=== PATIENT | female | born 2000 | race Asian ===

== ENCOUNTER 2025-03-14 14:58 | Emergency (ER) | payer OTHER, SELFPAY ==
--- NOTE | ~2025-03-14 | XR_ITS ---
EXAMINATION: XR chest 2V, 03/14/2025 16:09 CDT HISTORY: ruq pain, pain with inspriation x 4 days, no inj, no surg COMPARISON: No comparisons available. Technique: 2 views obtained. Findings: The lungs are clear, no effusion. No pneumothorax. Heart is normal size. Mediastinal and hilar contours are within normal limits. Bony thorax no acute abnormality. Impression: No acute cardiopulmonary abnormality. Reviewed, dictated and finalized at location P. Impression: No acute cardiopulmonary abnormality.
[2025-03-14 15:18] VITALS: BP 116/80; PULSE 85; RESP 18; TEMP 37.2; O2SAT 98
--- NOTE | 2025-03-14 16:05 | ED.ABDPAIN ---
HPI - Abdominal Pain General Chief Complaint: Abdominal Pain Stated Complaint: UPPER R ABD PAIN Time Seen by Provider: 03/14/25 15:50 Source: patient, family and RN notes reviewed Mode of arrival: ambulatory Limitations: no limitations History of Present Illness HPI narrative: 25-year-old female presents Express Care complaining of right upper abdominal pain for approximately 5 days. Patient said her symptoms started after she took metronidazole for bacterial vaginosis, day 5 she developed abdominal pain, nausea, vomiting. Patient was seen at to [facility] ER for her symptoms, she had a lower pelvic ultrasound,, CT abdomen pelvis with contrast, lab work and was told everything was unremarkable and was diagnosed with gastritis along with ovarian cyst. Patient was sent home on Zofran and omeprazole. Patient says symptoms are not improving. Patient reports that sharp stabbing sensation to her right upper quadrant, that is worse with eating. Patient denies any nausea vomiting, diarrhea, fevers and body aches, chills, chest pain, difficulty breathing, or any other symptoms. Patient reports some pain with inspiration the right upper quadrant. Related Data Allergies Allergy/AdvReac Type Severity Reaction Status Date / Time No Known Allergies Allergy Verified 03/14/25 15:39 Review of Systems Review of Systems: CONSTITUTIONAL: Denies fever, chills, or sweats. EYES: Denies visual changes, redness, or discharge. ENT: Denies rhinorrhea, congestion, sore throat, or otalgia. CARDIOVASCULAR: Denies chest pain, palpitations, or edema. RESPIRATORY: Denies cough or dyspnea. GASTROINTESTINAL: Positive for abdominal pain. Negative for nausea, vomiting, or diarrhea. GENITOURINARY: Denies dysuria or hematuria. SKIN: Denies rash or itching. MUSCULOSKELETAL: Denies back pain, joint pain, or myalgia. NEUROLOGIC: Denies headache, numbness, or weakness. PSYCHIATRIC: Denies anxiety or depression. All other systems reviewed are negative, except as documented in HPI. PMFSH Comments At the time of my signature, I reviewed and agree with the nursing past medical, surgical, social, and family history. There is no relevant family history pertinent to the patient complaint. Exam Narrative: GENERAL: This is a well-nourished, well-developed adult, in no apparent distress. They are non ill-appearing, nontoxic appearing. Patient is anxious, condoms reassurance. HEAD: normocephalic, atraumatic. EYES: Sclera clear/white. Conjunctiva normal. Vision is grossly intact. Extraocular movements intact EARS: External ears normal, Hearing grossly intact. NOSE: External nose normal THROAT: Mucous membranes moist, NECK: Neck supple, non-tender without lymphadenopathy, masses or thyromegaly. CARDIOVASCULAR: Regular rate and rhythm without murmurs, gallops, or rubs. RESPIRATORY: Clear to auscultation. Breath sounds equal bilaterally. No wheezes, rales, or rhonchi. GASTROINTESTINAL: Abdomen soft, non-tender, nondistended. Bowel sounds are active. No hepato-splenomegaly, or palpable masses. No guarding or rigidity. Rebound tenderness. Negative Henderson sign. SKIN: warm, Dry, intact with no suspicious lesions or rash, good texture and turgor. NEURO: awake, alert, and oriented to person, place and time. There were no obvious focal neurologic abnormalities. EXTREMITIES: No joint tenderness, effusion, or edema noted. BACK: Nontender without deformity. No CVA tenderness. Course Course Emergency Course: Portions of this record may have been created with voice recognition software Level of Care: Express Care Visit Vital Signs Vital signs: Vital Signs Temperature 98.9 F 03/14/25 15:18 Pulse Rate 85 03/14/25 15:18 Respiratory Rate 18 03/14/25 15:18 Blood Pressure 116/80 03/14/25 15:18 Pulse Oximetry 98 03/14/25 15:18 Temperature 98.9 F 03/14/25 15:18 Pulse Rate 85 03/14/25 15:18 Respiratory Rate 18 03/14/25 15:18 Blood Pressure 116/80 03/14/25 15:18 Pulse Oximetry 98 03/14/25 15:18 Reviewed MDM - Abdominal Pain MDM Narrative Medical decision making narrative: Negative Henderson sign, no peritoneal findings, no abdominal tenderness, unremarkable workup done in the ER yesterday. Chest x-ray performed from patient's request as she was worried about a diaphragm, does not appear to be diaphragm related. Chest x-ray negative for any acute cardiopulmonary findings, Patient did not have an ultrasound performed of her right upper quadrant to assess the gallbladder, gallstones could have been missed. Symptoms are worse with eating, she recently was on Flagyl, and appears likely any more of a gastritis as she was diagnosed with. Offered patient ER transfer her back to the ER to get an ultrasound of her gallbladder and further further evaluation and she declined. Advised patient continue taking medications as prescribed and to have a close follow-up with PCP and GI specialist that she see in the past before. Discussed physical exam findings. Advised supportive measures and signs/symptoms to go to the ER. Pt is appropriate for outpt treatment and f/u. Differential Diagnosis Differential diagnosis: Likely other (Cholecystitis, cholestasis, gastritis, gastric ulcer, duodenal ulcer) Imaging Data Radiologist's impression: ITS Impressions Chest X-Ray 03/14/25 16:26 Impression: No acute cardiopulmonary abnormality. Critical Care Time Critical Care Time Critical Care Time: No Discharge Plan Discharge Clinical Impression: Right upper quadrant abdominal pain Gastritis Qualifiers: Gastritis type: unspecified gastritis Chronicity: acute Gastritis bleeding: without bleeding Qualified Code(s): K29.00 - Acute gastritis without bleeding Patient Disposition: Home Condition: Stable Instructions: Antibiotic Form, Gastritis (ED) Additional Instructions: Chest x-ray is negative for any acute cardiopulmonary findings. Please continue take your omeprazole as directed. Follow-up with her GI specialist in 3-5 days. You may need ultrasound of your gallbladder symptoms persist. Avoid foods that may trigger symptoms such as mint food, tomato based foods, spicy foods, fried foods, alcohol, NSAIDs, etc. You may take up to 1000 mg Tylenol every 6-8 hours. Do not exceed 1000 mg per dose, do exceed more than 4000 mg of Tylenol in a day. You may also take Tums as needed for heartburn, follow instructions on the bottle. If you developed worsening abdominal pain, bloody stools, fevers, unable to keep any food or water down more, or any serious concerns please go to the ER immediately. Patient Language: Yi Follow-up/Referrals: PHYSICIAN,TOP INVENTORY CONTROL EXECUTIVE [Primary Care Provider, Internal Medicine] Stand Alone Forms: Work/School Release IP Time of Disposition: 16:46
== END 2025-03-14 16:58 | disposition home or self-care (01) ==
DX: K29.00 Acute gastritis without bleeding (principal)
CPT/HCPCS: 71046; 99213; G0463

== ENCOUNTER 2025-04-03 14:15 | Emergency (ER) | payer OTHER, SELFPAY ==
[2025-04-03] VITALS (10 sets, daily range): BP systolic 108–121; BP diastolic 76–92; PULSE 98–110; RESP 16–26; TEMP 37.7; O2SAT 97–100
--- NOTE | ~2025-04-03 | CT_ITS ---
EXAMINATION: CTA chest PE abdomen pel, 04/03/2025 17:10 CDT HISTORY: shortness breath, chest pain, elevated d. dimer COMPARISON: No comparisons available. TECHNIQUE: CTA scan with 3D Reconstructions of the chest, CT of the abdomen and pelvis was performed with contrast Isovue 300, 92cc injected IV. One or more of the following dose reduction techniques were used: automated exposure control, adjustment of the mA and/or kV according to patient size, use of iterative reconstruction technique. Unless otherwise stated, incidental findings do not require dedicated follow up imaging FINDINGS: CT chest: No significant coronary calcification is present ([id number]) LUNGS: Clear without consolidation, effusion, or pneumothorax. HEART AND PERICARDIUM: Within normal limits. AORTA: Normal caliber aorta. MEDIASTINUM: Unremarkable. THYROID: The thyroid is unremarkable. CT abdomen: LIVER: Unremarkable, liver contours intact, no lesions. SPLEEN: Unremarkable, no splenomegaly. KIDNEYS: Right Kidney: Unremarkable. No calculi. No hydronephrosis. Left Kidney: Unremarkable. No calculi. No hydronephrosis ADRENAL GLANDS: Unremarkable. PANCREAS: GALLBLADDER/BILIARY: Unremarkable. No biliary dilatation. STOMACH AND ESOPHAGUS: Visualized stomach and esophagus within normal limits. BOWEL/MESENTERY: Moderate fecal content, no colitis or diverticulitis. Appendix normal. Mesentery normal. No thickening or dilated loops of small bowel. RETROPERITONEUM: Unremarkable AORTA/VASCULATURE: Normal caliber aorta. FREE FLUID OR FREE AIR: None. CT pelvis: SOLID ORGANS/REPRODUCTIVE: Unremarkable. BLADDER: Within normal limits. LYMPHADENOPATHY: No lymphadenopathy. OSSEOUS STRUCTURES: No acute osseous abnormality.No suspicious lesions. OVERLYING SOFT TISSUES: Unremarkable. IMPRESSION: 1. Negative for pulmonary embolism. No acute process in the chest.. No acute process in the abdomen or pelvis Reviewed, dictated and finalized at location P. IMPRESSION: 1. Negative for pulmonary embolism. No acute process in the chest.. No acute pr ocess in the abdomen or pelvis
--- NOTE | ~2025-04-03 | XR_ITS ---
EXAMINATION: XR chest 2V, 04/03/2025 15:50 CDT HISTORY: dyspnea WITH RIGHT SIDED CHEST PAIN THAT RADIATES COMPARISON: No comparisons available. Technique: 2 views obtained. Findings: The lungs are clear, no effusion. No pneumothorax. Heart is normal size. Mediastinal and hilar contours are within normal limits. Bony thorax no acute abnormality. Impression: No acute cardiopulmonary abnormality. Reviewed, dictated and finalized at location P. Impression: No acute cardiopulmonary abnormality.
--- NOTE | ~2025-04-03 | US_ITS ---
ULTRASOUND ABDOMEN LIMITED (RIGHT UPPER QUADRANT) Clinical History: R upper abdominal pain Comparison: CT chest abdomen pelvis hours prior Technique: Right upper quadrant sonography Findings: Liver: Normal size. Normal echotexture. No intrahepatic biliary ductal dilatation. Normal hepatopedal flow main portal vein Common Duct: Normal caliber. 2 mm. Gallbladder: No stones. No wall thickening. No pericholecystic fluid. Pancreas: Unremarkable. IMPRESSION: 1. No acute findings. Reviewed, dictated and finalized at location R. IMPRESSION: 1. No acute findings.
--- NOTE | 2025-04-03 15:27 | ED.SOB ---
HPI - SOB/Dyspnea General Chief Complaint: Shortness of Breath/Dyspnea <SUELLEN Montoya - Last Filed: 04/03/25 15:36> Stated Complaint: RUQ x 3 weeks. SOB. bright red blood in stool <SUELLEN Montoya - Last Filed: 04/03/25 15:36> Time Seen by Provider: 04/03/25 15:27 <SUELLEN Montoya - Last Filed: 04/03/25 15:36> Focused HPI: 03/13/25 Pt started having pain in RUQ and right side of chest. She was seen at [facility] on that day and had CT Scan there showed nothing acute. Discharged with PPI therapy and suspected Gastritis. She was advised to see GI, but appointment is in 2 months at [facility]. She felt better the first week, but then she developed SOB with pain on inspiration. She has pain with BM and blood in the stool two days ago that was light pink in color. No clots, but was covering the stool. No vomiting. Did start coughing for the past two days without any hemoptysis. Does not take any blood thinners. LMP two weeks ago. No chance of . Feels chilled at times, no measured temperatures and feels dizzy. GENERAL: Thin, ill appearing female. HEAD: Normocephalic, atraumatic. CHEST: Clear to auscultation. ?No respiratory distress. No palpable tenderness of the chest. HEART: Regular rhythm, tachycardic. ABDOMINAL: TTP diffuse. NO peritoneal signs. NEURO: ?Alert and oriented x3. Patient screened in triage and initial orders placed.? ?Additional care and disposition to be based upon?diagnostic testing and treatment. <SUELLEN Montoya - Last Filed: 04/03/25 15:36> Source: patient <SUELLEN Montoya - Last Filed: 04/03/25 15:36> Mode of arrival: ambulatory <SUELLEN Montoya - Last Filed: 04/03/25 15:36> Limitations: no limitations <SUELLEN Montoya - Last Filed: 04/03/25 15:36> History of Present Illness HPI Narrative: I agree with the above HPI <Isabella Maza, SERVER MANAGER - Last Filed: 04/03/25 23:21> Related Data Allergies/Adverse Reactions: Allergies Allergy/AdvReac Type Severity Reaction Status Date / Time No Known Allergies Allergy Verified 03/14/25 15:39 <Samra Xavier, BATCH MIXER OPERATOR-C - Last Filed: 04/03/25 15:36> Review of Systems Review of Systems: All systems reviewed & are unremarkable except as noted in HPI and below <Isabella Maza APRN - Last Filed: 04/03/25 23:21> Exam Narrative: GENERAL: Ill appearing, well-nourished, non-toxic, in no acute distress. HEAD: Normocephalic, atraumatic. NECK: Supple. No adenopathy, no masses. RESPIRATORY: Airway patent, respirations nonlabored. Clear to auscultation bilaterally, no rales, rhonchi, wheezing. CARDIOVASCULAR: tachycardia, regular rhythm without murmurs, rubs, or gallops. Peripheral pulses 2+ and equal bilaterally. ABDOMINAL: Soft, generalized tender, nondistended, no hepatosplenomegaly. Normoactive BS. MUSCULOSKELETAL: Moves all extremities. Strength/ROM intact without gross deformities. SKIN: Warm, dry, normal color. No rashes. NEURO: A&O X3. Speech clear. Cranial nerves II-XII intact. No ataxic movements. PSYCHIATRIC: Appropriate mood and affect. Normal interaction. GI/: Pt's rectal exam indicates no palpable hemorrhoids and no rectal bleeding. <Isabella Maza, CHAKA - Last Filed: 04/03/25 23:21> Course Vital Signs Vital signs: Vital Signs Temperature 37.7 C H 04/03/25 15:15 Pulse Rate 110 H 04/03/25 15:15 Respiratory Rate 26 H 04/03/25 15:15 Blood Pressure 108/76 04/03/25 15:15 Pulse Oximetry 100 04/03/25 15:15 Oxygen Delivery Room Air 04/03/25 15:15 Temperature 37.7 C H 04/03/25 15:15 Pulse Rate 98 04/03/25 17:37 Respiratory Rate 20 04/03/25 17:37 Blood Pressure 120/87 04/03/25 17:46 Pulse Oximetry 100 04/03/25 17:46 Oxygen Delivery Room Air 04/03/25 16:39 <Samra Xavier, BATCH MIXER OPERATOR-C - Last Filed: 04/03/25 15:36> Vital Signs Temperature 37.7 C H 04/03/25 15:15 Pulse Rate 110 H 04/03/25 15:15 Respiratory Rate 26 H 04/03/25 15:15 Blood Pressure 108/76 04/03/25 15:15 Pulse Oximetry 100 04/03/25 15:15 Oxygen Delivery Room Air 04/03/25 15:15 Temperature 37.7 C H 04/03/25 15:15 Pulse Rate 98 04/03/25 17:37 Respiratory Rate 20 04/03/25 17:37 Blood Pressure 120/87 04/03/25 17:46 Pulse Oximetry 100 04/03/25 17:46 Oxygen Delivery Room Air 04/03/25 16:39 <Isabella Maza, SERVER MANAGER - Last Filed: 04/03/25 23:21> MDM - SOB/Dyspnea MDM Narrative Medical decision making narrative: Pt started having pain in RUQ and right side of chest. She was seen at [facility] on that day and had CT Scan there showed nothing acute. Discharged with PPI therapy and suspected Gastritis. She was advised to see GI, but appointment is in 2 months at [facility]. She felt better the first week, but then she developed SOB with pain on inspiration. She has pain with BM and blood in the stool two days ago that was light pink in color. No clots, but was covering the stool. No vomiting. Did start coughing for the past two days without any hemoptysis. Does not take any blood thinners. LMP two weeks ago. No chance of . Feels chilled at times, no measured temperatures and feels dizzy. Labs Ordered: CBC, CMP, UA, lipase, D-dimer, COVID/flu/RSV, lactic acid Imaging Ordered: CT PE abdomen pelvis Medications Ordered: 1 L normal saline IV bolus, morphine 2 mg IV, Zofran 4 mg IV Results: Patient's CT scan indicates no acute abnormalities. Her ultrasound also indicates no acute abnormalities. Patient's urinalysis indicates she has a UTI. Diagnosis: Urinary tract infection, GERD, atypical chest pain Risks: HEART score: low risk HEART Score for Major Cardiac Events from [email or web address] on 04/03/2025 All calculations should be rechecked by clinician prior to use RESULT SUMMARY: 0 points Low Score (0-3 points) Risk of MACE of 0.9-1.7%. INPUTS: History ?> 0 = Slightly suspicious EKG ?> 0 = Normal Age ?> 0 = <45 Risk factors ?> 0 = No known risk factors Initial troponin ?> 0 = <Normal limit Consults: gastroenterology (outpatient) 1999-Patient endorses improvement of symptoms following medication administration but is tearful upon time of it reexamination. She is begging to be admitted for pain control as she says the pain is terrible at night and wakes her up every hour. Patient is begging for a diagnosis for her symptoms. She reports I will have any kind of surgery I do not care. I just want this pain to be relieved patient was offered an ultrasound of her right upper quadrant but declined. It was advised patient receive Pepcid in addition to her pantoprazole at home, as her midsternal chest pain is most likely related to GERD. 2100- Pt is requesting an ultrasound now. 2300-Patient's abdominal ultrasound indicates no acute abnormalities. Patient Education/Shared MDM: Results of lab work and imaging shared with patient. Extensive discussion between DIGITAL MEDIA MANAGER, pt and her regarding her reassuring work-up and things she will be sent home with to her relieve her symptoms until she is able to follow-up with GI. She endorses mild improvement of symptoms following medication administration. Patient strongly advised to maintain hydration status upon discharge and follow-up with GI as soon as possible. She will be discharged home with a prescription for Pepcid, Bentyl, GI cocktail, and Bactrim. Strict return precautions provided. Patient verbalized understanding and is in agreement with plan. Vital signs stable at time of discharge. All questions answered. <Isabella Maza APRN - Last Filed: 04/03/25 23:21> Differential Diagnosis Differential diagnosis: Likely other (GERD, muscle strain, STEMI, pulmonary embolism, urinary tract infection) <Isabella Maza APRN - Last Filed: 04/03/25 23:21> Lab Data Attestation: I reviewed the patient's lab results. <Isabella Maza APRN - Last Filed: 04/03/25 23:21> Result diagrams: 04/03/25 16:17 04/03/25 16:17 <Samra Xavier APN-Shantel - Last Filed: 04/03/25 15:36> Labs: Lab Results 04/03/25 04/03/25 04/03/25 Range/Units 16:17 16:18 17:42 WBC 7.9 (4.5-10.0) K/mm3 RBC 4.66 (4.2-5.4) M/mm3 Hgb 13.9 (12.0-15.0) g/dL Hct 41.5 (37.0-47.0) % MCV 89.1 (80-100) fl MCH 29.8 (26-34) pg MCHC 33.5 (32-36) g/dl RDW 12.0 (11.5-14.5) % Plt Count 249 (150-375) k/mm3 MPV 10.0 (7.4-10.4) fl Immature Gran % (Auto) 0.3 (0-0.5) % Neut % (Auto) 61.1 (45.5-73.1) % Lymph % (Auto) 28.7 (18.3-44.2) % [place] % (Auto) 9.2 H (2.6-8.5) % Eos % (Auto) 0.1 (0-4.4) % Baso % (Auto) 0.6 (0.2-1.2) % Lymph # (Auto) 2.27 (0.9-3.2) K/mm3 [place] # (Auto) 0.7 H (0.1-0.6) K/mm3 Eos # (Auto) 0.0 (0-0.3) K/mm3 Baso # (Auto) 0.1 (0.0-0.1) K/mm3 Abs Immat Gran (auto) 0.02 (0.00-0.031) K/mm3 Absolute Neuts (auto) 4.8 (1.3-6.7) K/mm3 Absolute Nucleated RBC 0.000 (0.0-0.012) K/mm3 Nucleated RBC % 0.0 (0.0-0.2) % D-Dimer 1.35 H (<0.48) ug/mL Sodium 139 (137-145) mmol/L Potassium 4.0 (3.4-5.0) mmol/L Chloride 103 (98-107) mmol/L Carbon Dioxide 26 (22-30) mmol/L Anion Gap 10 (4-12) mmol/L BUN 12 (7-17) mg/dL Creatinine 0.86 (0.7-1.0) mg/dL Estim Creat Clear Calc 68 ml/min Estimated GFR > 60 (59 - ) Glucose 104 (65-110) mg/dL Lactic Acid 0.9 (0.7-2.0) mmol/L Calcium 9.7 (8.4-10.2) mg/dL Total Bilirubin 0.9 (0.2-1.3) mg/dL AST 23 (14-36) U/L ALT 16 (6-35) U/L Alkaline Phosphatase 56 (38-126) U/L Total Protein 8.5 H (6.3-8.2) g/dL Albumin 5.3 H (3.5-5.1) g/dL Lipase 228 (23-300) U/L Urine Color Yellow (Yellow) Urine Appearance Cloudy H (Clear) Urine pH 6.5 (5.0-9.0) Ur Specific [place] 1.024 (1.001-1.035) Urine Protein Negative (Negative) mg/dL Urine Glucose (UA) Negative (Negative) mg/dL Urine Ketones 1+ H (Negative) mg/dL Ur Blood (Man) Trace (Negative) Urine Nitrate Negative (Negative) Urine Bilirubin Negative (Negative) Urine Urobilinogen 1.0 (<2.0) mg/dL Leukocyte Esterase Rfl 2+ H (Negative) BLANE/UL Urine RBC 3-5 H (0-2) /hpf Urine WBC 6-10 H (0-3) /hpf Ur Squamous Epith Cells Occasional (Few) /hpf Urine Bacteria None seen /hpf Urine Casts 0-2 POC Urine HCG, Qual Negative (Negative) Influenza A (RT-PCR) Negative (Negative) Influenza B (RT-PCR) Negative (Negative) RSV (RT-PCR) Negative (Negative) SARS-CoV-2 RNA (RT-PCR) Negative (Negative) <Samra Xavier APN-C - Last Filed: 04/03/25 15:36> Lab Results 04/03/25 04/03/25 04/03/25 Range/Units 16:17 16:18 17:42 WBC 7.9 (4.5-10.0) K/mm3 RBC 4.66 (4.2-5.4) M/mm3 Hgb 13.9 (12.0-15.0) g/dL Hct 41.5 (37.0-47.0) % MCV 89.1 (80-100) fl MCH 29.8 (26-34) pg MCHC 33.5 (32-36) g/dl RDW 12.0 (11.5-14.5) % Plt Count 249 (150-375) k/mm3 MPV 10.0 (7.4-10.4) fl Immature Gran % (Auto) 0.3 (0-0.5) % Neut % (Auto) 61.1 (45.5-73.1) % Lymph % (Auto) 28.7 (18.3-44.2) % [place] % (Auto) 9.2 H (2.6-8.5) % Eos % (Auto) 0.1 (0-4.4) % Baso % (Auto) 0.6 (0.2-1.2) % Lymph # (Auto) 2.27 (0.9-3.2) K/mm3 [place] # (Auto) 0.7 H (0.1-0.6) K/mm3 Eos # (Auto) 0.0 (0-0.3) K/mm3 Baso # (Auto) 0.1 (0.0-0.1) K/mm3 Abs Immat Gran (auto) 0.02 (0.00-0.031) K/mm3 Absolute Neuts (auto) 4.8 (1.3-6.7) K/mm3 Absolute Nucleated RBC 0.000 (0.0-0.012) K/mm3 Nucleated RBC % 0.0 (0.0-0.2) % D-Dimer 1.35 H (<0.48) ug/mL Sodium 139 (137-145) mmol/L Potassium 4.0 (3.4-5.0) mmol/L Chloride 103 (98-107) mmol/L Carbon Dioxide 26 (22-30) mmol/L Anion Gap 10 (4-12) mmol/L BUN 12 (7-17) mg/dL Creatinine 0.86 (0.7-1.0) mg/dL Estim Creat Clear Calc 68 ml/min Estimated GFR > 60 (59 - ) Glucose 104 (65-110) mg/dL Lactic Acid 0.9 (0.7-2.0) mmol/L Calcium 9.7 (8.4-10.2) mg/dL Total Bilirubin 0.9 (0.2-1.3) mg/dL AST 23 (14-36) U/L ALT 16 (6-35) U/L Alkaline Phosphatase 56 (38-126) U/L Total Protein 8.5 H (6.3-8.2) g/dL Albumin 5.3 H (3.5-5.1) g/dL Lipase 228 (23-300) U/L Urine Color Yellow (Yellow) Urine Appearance Cloudy H (Clear) Urine pH 6.5 (5.0-9.0) Ur Specific [place] 1.024 (1.001-1.035) Urine Protein Negative (Negative) mg/dL Urine Glucose (UA) Negative (Negative) mg/dL Urine Ketones 1+ H (Negative) mg/dL Ur Blood (Man) Trace (Negative) Urine Nitrate Negative (Negative) Urine Bilirubin Negative (Negative) Urine Urobilinogen 1.0 (<2.0) mg/dL Leukocyte Esterase Rfl 2+ H (Negative) BLANE/UL Urine RBC 3-5 H (0-2) /hpf Urine WBC 6-10 H (0-3) /hpf Ur Squamous Epith Cells Occasional (Few) /hpf Urine Bacteria None seen /hpf Urine Casts 0-2 POC Urine HCG, Qual Negative (Negative) Influenza A (RT-PCR) Negative (Negative) Influenza B (RT-PCR) Negative (Negative) RSV (RT-PCR) Negative (Negative) SARS-CoV-2 RNA (RT-PCR) Negative (Negative) <Isabella Maza APRN - Last Filed: 04/03/25 23:21> Imaging Data Attestation: I personally reviewed and interpreted this imaging study as follows: <Isabella Maza APRN - Last Filed: 04/03/25 23:21> Radiologist's impression: Impressions Chest X-Ray 04/03/25 16:06 Impression: No acute cardiopulmonary abnormality. Chest/Abdomen/Pelvis CTA 04/03/25 17:41 IMPRESSION: 1. Negative for pulmonary embolism. No acute process in the chest.. No acute process in the abdomen or pelvis <Isabella Maza APRN - Last Filed: 04/03/25 23:21> Discharge Plan Discharge Clinical Impression: Urinary tract infection, Gastric reflux syndrome, Atypical chest pain <SUELLEN Montoya - Last Filed: 04/03/25 15:36> Patient Disposition: Home <SUELLEN Montoya - Last Filed: 04/03/25 15:36> Condition: Stable <SUELLEN Montoya Last Filed: 04/03/25 15:36> Instructions: Antibiotic Form, Urinary Tract Infection in Women (ED), Diet for Stomach Ulcers and Gastritis (ED) <SUELLEN Montoya - Last Filed: 04/03/25 15:36> Additional Instructions: Please return to the ER with any worsening symptoms. Follow-up with GI as soon as possible. Take all medications as prescribed, including regularly scheduled medications. You may take Bentyl as needed for pain control. Please take Pepcid twice a day along with your pantoprazole. Complete your full dose of antibiotics. <SUELLEN Montoya - Last Filed: 04/03/25 15:36> Patient Language: Irish <SUELLEN Montoya - Last Filed: 04/03/25 15:36> Prescriptions: New famotidine [Pepcid] 40 mg tablet 40 mg PO BID Qty: 60 0RF sulfamethoxazole-trimethoprim [Bactrim DS] 800-160 mg tablet 1 tablet PO Q12H 5 Days Qty: 10 0RF dicyclomine 10 mg capsule 10 mg PO TID Qty: 20 0RF <SUELLEN Montoya Last Filed: 04/03/25 15:36> Follow-up/Referrals: PHYSICIAN,FOILING MACHINE ADJUSTER [Non-Staff, Internal Medicine] <SUELLEN Montoya Last Filed: 04/03/25 15:36>
[2025-04-03 16:22] LABS: BEDSIDEPREGUCG Negative (Negative)
[2025-04-03 16:27] LABS: Hematocrit 41.5 % (37.0-47.0); Hemoglobin 13.9 g/dL (12.0-15.0); Immature Granulocyte Percent A 0.3 % (0-0.5); Lymphocytes Absolute Auto 2.27 K/mm3 (0.9-3.2); Mean Corpuscular HGB Conc 33.5 g/dl (32-36); Mean Corpuscular Hemoglobin 29.8 pg (26-34); Mean Corpuscular Volume 89.1 fl (80-100); Nucleated Red Blood Cells Absolute Auto 0.000 K/mm3 (0.0-0.012); Nucleated Red Blood Cells Perc 0.0 % (0.0-0.2); Platelet Count Result 249 k/mm3 (150-375); Red Blood Count 4.66 M/mm3 (4.2-5.4); White Blood Count 7.9 K/mm3 (4.5-10.0)
[2025-04-03 16:30] LABS: Add Urine Microscopic? YES; Appearance Urine Cloudy (Clear); Glucose Urine UA Negative (Negative); Leukocyte Esterase Ur 2+ LEU/UL (Negative); Nitrate Urine Negative (Negative); Non Pathogenic Casts 0-2; Specific Grav Ur 1.024 (1.001-1.035)
[2025-04-03 16:36] LABS: Alanine Aminotransferase 16 U/L (6-35); Albumin Level 5.3 g/dL (3.5-5.1); Alkaline Phosphatase 56 U/L (38-126); Anion Gap 10 mmol/L (4-12); Aspartate Amino Transferase 23 U/L (14-36); Bilirubin,Total 0.9 mg/dL (0.2-1.3); Blood Urea Nitrogen 12 mg/dL (7-17); Calcium 9.7 mg/dL (8.4-10.2); Carbon Dioxide 26 mmol/L (22-30); Chloride 103 mmol/L (98-107); Estimated CRCL calculation 68 ml/min; Estimated Glomerular Filt Rate > 60; Glucose 104 mg/dL (65-110); Lipase 228 U/L (23-300); Potassium 4.0 mmol/L (3.4-5.0); Sodium 139 mmol/L (137-145); Total Protein 8.5 g/dL (6.3-8.2)
[2025-04-03 17:03] LABS: Influenza A QL RT-PCR Negative (Negative); Influenza B QL RT-PCR Negative (Negative); RSV RNA, RT-PCR Negative (Negative); SARS-CoV-2 RNA PCR Negative (Negative)
[2025-04-03] MEDS: SODIUM CHLORIDE 0.9% IV 1,000 ML 999 ML IV CONT (17:34)
--- OUTSIDE RECORDS SUMMARY | 2025-04-03 17:47 | XMS_ITS | Clinical Summary ---
Author Organization [facility] Address [address] [place] [address] Care Team Providers Care Hospice Team Lead Name Role Phone Unavailable Primary Care Provider Unavailabl e Source Comments [facility],non-owned Affiliates and Associated Physician Practices is amultiple site organization consisting of ambulatory clinics and hospital sitesin [place] and [place]. This disclosure is being madepursuant to the Care Everywhere program and may not contain all information available regarding this patient. Last updated 18.[facility] Allergies No known active allergies Medications * Be aware that medications may not be up to date on this document. Alwaysverify current medications with the patient. famotidine (Pepcid) 20 MG tabletIndicati ons:Gastric Ulcer,Gastroes ophageal Reflux Disease,Heartb urn Take 1 (one) tablet by mouth 2 times daily as needed for Heartburn Reasons: Gastroesophageal Reflux Disease, Heartburn, Stomach Ulcer 60 tablet 11/03/19 25 Active hyoscyamine (Levsin SL) 0.125 MG sublingual tabletIndicati ons:Abdominal Cramps,Irritab le Bowel Syndrome Dissolve 1 (one) tablet under the tongue every 12 hours as needed for Spasms Reasons: Cramping Pain in the Abdomen, Irritable Bowel Syndrome 60 tablet 03/10/20 25 Active Encounters Date Type Department Care Team Description 03/10/2025 Orders Only [facility] - GI [address] [place] [id number] Erin Roche APRN-PRANAV Diarrhea, unspecified type ; Bloating; Generalized abdominal pain 02/16/2025 Orders Only [facility] - GI [address] [place] [address] Jose RocheianaCHAKA-SEMICONDUCTOR DIES LOADER Irritable bowel syndrome with diarrhea 02/16/2025 Travel from Last 3 Months Social History Tobacco Use Types Packs/Day Years Used Date Smoking Tobacco: Never Assessed Comments Unknown Sex and Gender Information Value Date Recorded Sex Assigned at Not on file Legal Sex Female 1:57 PM CDT Gender Identity Not on file Sexual Orientation Not on file Last Filed Vital Signs Vital Sign Reading Time Taken Comments Blood Pressure 122/72 09/14/2024 11:50 AM CDT Pulse - - Temperature - - Respiratory Rate - - Oxygen Saturation - - Inhaled Oxygen Concentration - - Weight 56.8 kg (125 lb 3.2 oz) 09/14/2024 11:50 AM CDT Height 160 cm (5' 3) 09/14/2024 11:50 AM CDT Body Mass Index 22.18 09/14/2024 11:50 AM CDT Plan of Treatment Health Maintenance Due Date Last Done Comments HIV SCREENING 2014 HPV VACCINE (1 - 3-dose series) 2014 HEPATITIS C SCREENING 01/02/2017 DTAP/TDAP/TD VACCINES (1 - Tdap) 2018 HEPATITIS B VACCINE (1 of 3 - 19+ 3-dose series) 2018 PAP SMEAR 01/08/2020 DEPRESSION SCREENING 06/08/2024 COVID-19 VACCINE (1 - 2023-2 5 season) 2025 INFLUENZA VACCINE (#1) 2025 ZOSTER VACCINE (1 of 2) 2049 HIB VACCINE Aged Out No longer eligi ble based on patient's age to complete this topic MENINGOCOCCAL (Group B) VACC INE SHARED DECISION-MAKING Aged Out No longer eligibl e based on patient's age to complete this topic MENINGOCOCCAL GROUPS A/C/Y/W VACCINE Aged Out No longer eligible b ased on patient's age to complete this topic PNEUMOCOCCAL VACCINE Aged Out No long er eligible based on patient's age to complete this topic [place] [address] [place] [address]
--- OUTSIDE RECORDS SUMMARY | 2025-04-03 17:47 | XMS_ITS | Clinical Summary ---
Author Organization [facility] [address] Address [address] [place] [address] Care Team Providers Care Program Analyst Name Role Phone Romeo Rendon MD Primary Care Provider [phone] Allergies No known active allergies Medications pantoprazole DR (PROTONIX) 40 mg EC tablet Take 1 tablet (40 mg total) by mouth 2 (two) times a day 60 tablet 11 03/29/2025 Active dicyclomine (BENTYL) 20 mg tablet Take 1 tablet (20 mg total) by mouth 2 (two) times a day 20 tablet 03/29/2025 Active Encounters Date Type Department Care Team Description 03/29/2025 10:03 AM CDT - 03/29/2025 3:27 PM CDT Emergency [facility] Emergency Department [address] [place] [address] Bhupinder Nelson MD Right-sided chest pain (Primary Dx); Right upper quadrant abdominal pain; Sinus tachycardia by electrocardiogram Discharge Disposition: Discharge to home or self care from Last 3 Months Social History Tobacco Use Types Packs/Day Years Used Date Smoking Tobacco: Never Smokeless Tobacco: Never Tobacco Cessation:Counseling Given: Not Answered Alcohol Use Standard Drinks/Week Comments Not Currently 0 (1 standard drink = 0.6 oz pur e alcohol) Personal Safety Answer Date Recorded Have you ever been in or are you currently in a harmful physical or emotional relationship or is someone making you feel afraid or unsafe? Denies 03/29/2025 Comments No Sex and Gender Information Value Date Recorded Sex Assigned at Not on file Legal Sex Female 11:39 AM CDT Gender Identity Not on file Sexual Orientation Not on file Obstetrics History Last Filed Vital Signs Vital Sign Reading Time Taken Comments Blood Pressure 111/69 03/29/2025 1:49 PM CDT Pulse 72 03/29/2025 1:49 PM CDT Temperature 37.7 C (99.8 F) 03/29/2025 9:47 AM CDT Respiratory Rate 20 03/29/2025 1:49 PM CDT Oxygen Saturation 100% 03/29/2025 1:49 PM CDT Inhaled Oxygen Concentration - - Weight - - Height - - Body Mass Index - - Plan of Treatment Health Maintenance Due Date Last Done Comments Cervical Cancer Screening 1999 Depression Screening 1999 Hepatitis C Screening 1999 DTaP/Tdap/Td Vaccine (1 - Tdap) 2010 Varicella Vaccines (1 of 2 - 13+ 2-dose series) 01/08/2012 HPV Vaccines (1 - 3-dose series) 2014 Hepatitis B Screening 2017 Regular Well Visit/Exam 18-64 2017 Influenza Vaccine (#1) 2025 Pneumococcal vaccine <65 Aged Out No longer eligible based on patient's age to complete this topic Procedures Procedure Name Priority Date/Time Associated Diagnosis Comments LIPASE STAT 03/29/2025 2:19 PM CDT US RUQ ED 03/29/2025 1:24 PM CDT LACTATE STAT 03/29/2025 11:51 AM CDT URINALYSIS AND REFLEX TO MICROSCOPIC STAT 03/29/2025 11:51 AM CDT POCT HCG, URINE Routine 03/29/2025 11:45 AM CDT LIPASE STAT 03/29/2025 11:34 AM CDT EGFR STAT 03/29/2025 11:34 AM CDT DIFFERENTIAL AUTO STAT 03/29/2025 11: 34 AM CDT HEPATIC FUNCTION PANEL STAT 03/29/2025 11:34 AM CDT BASIC METABOLIC PANEL STAT 03/29/2025 11:34 AM CDT CBC WITH AUTO DIFFERENTIAL STAT 03/29/2025 11:34 AM CDT ECG 12-LEAD STAT 03/29/2025 9:59 AM CDT from Last 3 Months Results * Lipase (03/29/2025 2:19 PM CDT) Lipase 53 10 - 99 Units/L Blood 03/29/2025 2:19 PM CDT 03/29/2025 2:33 PM CDT us Henny Meléndez MD LAB BLOOD ORDERABLES Final Resul t Performing Organization Address City/State/[facility] Co de Phone Number [facility] Department [place] [address] * US RUQ (03/29/2025 1:24 PM CDT) Anatomical Region Laterality Modality Abdomen N/A Ultrasound 03/29/2025 1:29 PM CDT Impressions 03/29/2025 1:29 PM CDT Normal right upper quadrant sonogram. Electronically signed by: James Chang MD PHD Narrative 03/29/2025 1:29 PM CDT EXAMINATION: LIMITED ABDOMINAL SONOGRAM HISTORY: 25-year-old with right upper quadrant abdominal pain. COMPARISON: None FINDINGS: Liver: The liver is normal in size. The echotexture is normal. The echogenicity is normal. There is no surface nodularity. No focal solid lesions are visualized. Gallbladder: The gallbladder is normal in size, with an incidentally noted phrygian cap. There are no stones or sludge within the gallbladder. There is no gallbladder wall thickening. Bile Duct: There is no intrahepatic bile duct dilatation. The diameter of the common duct is 1 mm in the proximal segment and 1 mm in the mid segment and 1 mm in the distal segment. Right Kidney: There is no hydronephrosis in the visualized portions of the right kidney. Pancreas: The visualized portions of the pancreas demonstrate no focal lesions. Procedure Note James Chang MD PhD - 03/29/2025 EXAMINATION: LIMITED ABDOMINAL SONOGRAM HISTORY: 25-year-old with right upper quadrant abdominal pain. COMPARISON: None FINDINGS: Liver: The liver is normal in size. The echotexture is normal. The echogenicity is normal. There is no surface nodularity. No focal solid lesions are visualized. Gallbladder: The gallbladder is normal in size, with an incidentally noted phrygian cap. There are no stones or sludge within the gallbladder. There is no gallbladder wall thickening. Bile Duct: There is no intrahepatic bile duct dilatation. The diameter of the common duct is 1 mm in the proximal segment and 1 mm in the mid segment and 1 mm in the distal segment. Right Kidney: There is no hydronephrosis in the visualized portions of the right kidney. Pancreas: The visualized portions of the pancreas demonstrate no focal lesions. IMPRESSION: Normal right upper quadrant sonogram. Electronically signed by: James Chang MD PHD Henny Meléndez MD [facility] US PROCEDURES Final Result * Lactate (03/29/2025 11:51 AM CDT) Pathologist [facility] Lactate 1.3 0.7 - 2.0 mmol/L Blood 03/29/2025 11:5 1 AM CDT 03/29/2025 11:55 AM CDT Henny Meléndez MD LAB BLOOD ORDERABLES Final Resul t [facility] [place] [address] * (ABNORMAL) Urinalysis reflex to microscopic (03/29/2025 11:51 AM CDT) Color, ur Straw Yellow Clarity, ur Clear Clear [facility] PFEIFFER Specific gravity, ur 1.026 1.003 - 1.030 [facility] pH, urine 7.0 [facility] Comment: Interpretive Data U rine pH is affected by diet, medications, systemic acid-base disturbances, and renal tubular function. pH may affect urinary stone formation. For example, urine pH below 6.0 may help reduce the tendency for calcium phosphate stones and pH greater than 6.0 may reduce the tendency for uric acid stone formation. Source: [facility] Current Interpretive Data was last revised on 2017 Protein, ur ql Trace Negative [facility] Glucose, ur ql Negative Negative [facility] Ketones, ur 2+(A) Negative [facility] Bilirubin, ur Negative Negative [facility] Blood, ur Negative Negative [facility] Urobilinogen, ur <2.0 <2.0 mg/dL [facility] Nitrite, ur Negative Negative [facility] Leukocyte esterase, ur Negative Negative [facility] UA reflex comment Reflex conditions for microscopic UA not met. [facility] Urine 03/29/2025 11:5 1 AM CDT 03/29/2025 11:55 AM CDT Henny Meléndez MD LAB URINE ORDERABLES Final Resul t [facility] Department [place] [address] * POCT hCG, urine (03/29/2025 11:45 AM CDT) HCG, ur, POC Negative Negative Lot Number [id number] QC Backgroud Clear Acceptable QC Control Line Acceptable Urine 03/29/2025 11:4 5 AM CDT Henny Meléndez MD POINT OF CARE TEST ORDERABLES Fi nal Result * eGFR (03/29/2025 11:34 AM CDT) eGFR >90 >=60 mL/min/1. 73 m2 Comment: Interpretive Data Reference Interval Normal >/= 90 mL/min/1.73m2 Mildly decreased* 60 - 89 mL/min/1.73m2 Mildly to moderately decreased 45 - 59 mL/min/1.73m2 Moderately to severely decreased 30 - 44 mL/min/1.73m2 Severely decreased 15 - 29 mL/min/1.73m2 Kidney Failure < 15 mL/min/1.73m2 *Relative to young adult level Estimated glomerular filtration rate is determined by the 2020 CKD-EPI equation recommended by the National Kidney Foundation (A Unifying Approach to GFR Estimation: Recommendations of the NKF-ASK Task Force on Reassessing the Inclusion of Race in Diagnosing Kidney Disease, JASN 202). The CKD-EPI equation should not be used for patients with unstable renal function and has not been validated in children and those over 70. Current interpretive data was last reviewed 2021. Blood 03/29/2025 11:3 4 AM CDT 03/29/2025 11:45 AM CDT us Henny Meléndez MD LAB BLOOD ORDERABLES Final Resul t [facility] Department [place] [address] * Differential, auto (03/29/2025 11:34 AM CDT) Neutrophil abs 2.89 1.50 - 6.50 K/cumm Imm gran abs 0.01 0.00 - 0.10 K/cumm [facility] Lymphocyte abs 1.99 0.80 - 3.30 K/cumm [facility] Monocyte abs 0.42 0.20 - 0.80 K/cumm [facility] Eosinophil abs 0.01 0.00 - 0.50 K/cumm [facility] Basophil abs 0.05 0.00 - 0.10 K/cumm [facility] Neutrophil pct 53.8 % [facility] Comment: Interpretive Data Percent cell count reference ranges are not reported, since discordance with absolute values may lead to misinterpretation of CBC data. Current Interpretive Data was last revised on 2017. Imm gran pct 0.2 % [facility] Comment: Interpretive Data Percent cell count reference ranges are not reported, since discordance with absolute values may lead to misinterpretation of CBC data. Current Interpretive Data was last revised on 2017. Lymphocyte pct 37.1 % [facility] Comment: Interpretive Data Percent cell count reference ranges are not reported, since discordance with absolute values may lead to misinterpretation of CBC data. Current Interpretive Data was last revised on 2017. Monocyte pct 7.8 % [facility] Comment: Interpretive Data Percent cell count reference ranges are not reported, since discordance with absolute values may lead to misinterpretation of CBC data. Current Interpretive Data was last revised on 2017. Eosinophil pct 0.2 % [facility] Comment: Interpretive Data Percent cell count reference ranges are not reported, since discordance with absolute values may lead to misinterpretation of CBC data. Current Interpretive Data was last revised on 2017. Basophil pct 0.9 % [facility] Comment: Interpretive Data Percent cell count reference ranges are not reported, since discordance with absolute values may lead to misinterpretation of CBC data. Current Interpretive Data was last revised on 2017. Blood 03/29/2025 11:3 4 AM CDT 03/29/2025 11:46 AM CDT us Henny Meléndez MD LAB BLOOD ORDERABLES Final Resul t [facility] Department [place] [address] * CBC with auto differential (03/29/2025 11:34 AM CDT) WBC 5.37 3.80 - 9.90 K/cumm Hgb 13.7 11.9 - 15.5 g/dL [facility] Hct 39.5 35.6 - 45.5 % [facility] Plt 239 150 - 400 K/cumm [facility] MPV 10.1 9.1 - 12.3 fL [facility] RBC 4.56 3.90 - 5.20 M/cumm [facility] MCV 86.6 81.3 - 96.4 fL [facility] MCH 30.0 27.1 - 33.3 pg [facility] MCHC 34.7 32.3 - 35.7 g/dL [facility] RDW CV 12.1 11.1 - 14.9 % [facility] RDW SD 38.6 35.7 - 48.1 fL [facility] NRBC abs 0.00 0.00 - 0.01 K/cumm [facility] Blood 03/29/2025 11:3 4 AM CDT 03/29/2025 11:46 AM CDT us Henny Meléndez MD LAB BLOOD ORDERABLES Final Resul t Performing Organization Address [facility] Co de Phone Number [facility] [place] [address] * Lipase (03/29/2025 11:34 AM CDT) Lipase 53 10 - 99 Units/L Blood 03/29/2025 11:3 4 AM CDT 03/29/2025 11:45 AM CDT us Bhupinder Nelson MD LAB BLOOD ORDERABLES Fin al Result Performing Organization Address [facility] de Phone Number [facility] Department [place] [address] * Hepatic function panel (03/29/2025 11:34 AM CDT) Bilirubin, total 0.9 0.1 - 1.2 mg/dL Bilirubin, direct 0.2 0.1 - 0.3 mg/dL [facility] Protein, pl 8.0 6.5 - 8.5 g/dL [facility] Albumin 4.9 3.5 - 5.0 g/dL [facility] Alk phos 61 40 - 130 Units/L [facility] ALT 13 7 - 45 Units/L [facility] AST 16 10 - 45 Units/L [facility] Blood 03/29/2025 11:3 4 AM CDT 03/29/2025 11:45 AM CDT Henny Meléndez MD LAB BLOOD ORDERABLES Final Resul t Performing Organization Address [facility] Co de Phone Number [facility] Department [place] [address] * Basic metabolic panel (03/29/2025 11:34 AM CDT) Sodium 139 135 - 145 mmol/L Potassium, pl 4.1 3.3 - 4.9 mmol/L [facility] Chloride 105 97 - 110 mmol/L [facility] CO2 24 22 - 32 mmol/L [facility] Anion gap 10 2 - 15 mmol/L [facility] BUN 15 6 - 25 mg/dL [facility] Creatinine 0.87 0.60 - 1.10 mg/dL [facility] Glucose 90 70 - 199 mg/dL [facility] Comment: Interpretive Data Fasting glucose >/= 126 mg/dl is diagnostic for diabetes. Fasting is defined as no caloric intake for at least 8 hours. Fasting glucose between 100 mg/dl to 125 mg/dl is diagnostic of prediabetes. In a patient with classic symptoms of hyperglycemia or hyperglycemic crisis, a random glucose >/= 200 mg/dl is diagnostic for diabetes. In the absence of unequivocal hyperglycemia, results should be confirmed by repeat testing. The classification and Diagnosis of Diabetes Diabetes Care 202; 46: S19-S40. Current interpretive data was last revised 2022. Calcium 9.7 8.5 - 10.3 mg/dL [facility] Blood 03/29/2025 11:3 4 AM CDT 03/29/2025 11:45 AM CDT Henny Meléndez MD LAB BLOOD ORDERABLES Final Resul t Performing Organization Address [facility] Co de Phone Number [facility] Department [place] [address] * ECG 12-LEAD (03/29/2025 9:59 AM CDT) Narrative [facility] - 03/29/2025 9:59 AM CDT Ferny Rome MD 03/29/2025 10:01 AM ECG 12 lead Date/Time: 03/29/2025 9:59 AM Performed by: Ferny Rome MD Authorized by: Jameson Flores MD Rate: ECG rate: 109 ECG rate assessment: normal Rhythm: Rhythm: sinus tachycardia Ectopy: Ectopy: none QRS: QRS axis: Normal (71 deg) QRS intervals: Normal (70 ms) Conduction: Conduction: normal ST segments: ST segments: Normal T waves: T waves: normal Previous ECG: Previous ECG: Unavailable Interpretation: Interpretation: non-specific Recommended Follow-up: Recommended follow up: further workup in the ED Comments: Sinus tachycardia. No ST-T changes. Otherwise normal. Procedure Note Ferny Rome MD - 03/29/2025 9:59 AM CDT Procedure ECG 12 lead Date/Time: 03/29/2025 9:59 AM Performed by: Ferny Rome MD Authorized by: Jameson Flores MD Rate: ECG rate: 109 ECG rate assessment: normal Rhythm: Rhythm: sinus tachycardia Ectopy: Ectopy: none QRS: QRS axis: Normal (71 deg) QRS intervals: Normal (70 ms) Conduction: Conduction: normal ST segments: ST segments: Normal T waves: T waves: normal Previous ECG: Previous ECG: Unavailable Interpretation: Interpretation: non-specific Recommended Follow-up: Recommended follow up: further workup in the ED Comments: Sinus tachycardia. No ST-T changes. Otherwise normal. Ferny Rome MD 03/29/25 1001 Bhupinder Nelson MD ECG ORDERABLES Final Re sult [facility] from Last 3 Months Insurance [facility] [employer] [employer] PLUS [facility] [employer] PLUS Care Teams Program Analyst Relationship Specialty Start Date End Date Romeo Rendon MD [address] [place] [id number] PCP - General Emergency Medicine 03/29/25
[2025-04-03] MEDS: MORPHINE SULFATE (*CRX) 4 MG/ML INJ 2 MG IV PUSH (18:22)
[2025-04-03] MEDS: KETOROLAC 15 MG/ML VIAL (*BKC) IV PUSH (19:16)
[2025-04-03] MEDS: BELLADONNA ALK/PHENOB ELIX 10 ML, MAG HYDROX/ALUMINUM HYD/SIMETH 30 ML, LIDOCAINE 2% VI... PO (19:16)
[2025-04-03] MEDS: SULFAMETHOXAZOLE/TRIMETHOPRIM 800/160 MG DS TABLET 1 TAB PO (19:17)
[2025-04-03] MEDS: DICYCLOMINE HCL 10 MG CAPSULE 20 MG PO (23:29)
== END 2025-04-03 23:35 | disposition home or self-care (01) ==
PROVIDERS: Nurse Practitioner Adult Health; Emergency Provider Registered Nurse; PCP Emergency Medicine
DX: N39.0 Urinary tract infection, site not specified (principal); K21.9 Gastro-esophageal reflux disease without esophagitis; R07.89 Other chest pain; Z20.822 Contact with and (suspected) exposure to COVID-19
CPT/HCPCS: 36415; 71046; 71275; 74177; 76705; 80053; 81001; 81025; 83605; 83690; 85025; 85380; 87086; 87637; 96361; 96374; 96375; 99284; A9270; J1885; J2270; J7030; Q9967

== ENCOUNTER 2025-04-10 11:03 | Emergency (ER) | payer OTHER, SELFPAY ==
[2025-04-10 11:21] VITALS: BP 111/82; PULSE 113; RESP 16; TEMP 37.4; O2SAT 98
[2025-04-10 11:37] LABS: EDUAAPPEAR Cloudy; EDUABILI Negative (Negative); EDUABLOOD 2+ (Negative); EDUACOLOR1 Yellow; EDUAGLUCOSE Negative (Negative); EDUAKETONE 2+ (Negative); EDUALEUKO 1+ (Negative); EDUANITRATE Negative (Negative); EDUAPH 6.0; EDUAPROTEIN Negative (Negative); EDUASPGRAVITY 1.015; EDUAUROBILI 0.2
--- NOTE | 2025-04-10 11:47 | ED_ITS ---
HPI - General Adult General Chief complaint: Urogenital-Female Stated complaint: Abdominal Pain/Blood In Urine Time Seen by Provider: 04/10/25 11:30 Source: patient, RN notes reviewed and old records reviewed Mode of arrival: ambulatory Limitations: no limitations History of Present Illness HPI narrative: 25-year-old female patient presents today complaining of suprapubic discomfort and white/yellow vaginal discharge. Patient was seen in the ER in 04/03/2025 for she had a full workup regarding abdominal pain. She was subsequently diagnosed with a UTI, discharged on Bactrim. The culture was negative. She f inished the Bactrim yesterday and states symptoms have not improved. She complains of continued hematuria, incomplete bladder emptying as well. Earlier in the month, she was seen in the ER at [facility], diagnosed with gastritis due to epigastric pain. She has been taking pantoprazole, carafate, dicyclomine, and has made some dietary modifications. States the meds are not helping with this pain. She is not taking the suggested Pepcid. She is schedule for an endoscopy tomorrow. Related Data Home Medications ?Medication ?Instructions ?Recorded ?Confirmed ?Last Taken ?Type pantoprazole 40 mg tablet,delayed 40 mg PO Q12H 04/10/25 Unknown History release sucralfate 1 gram tablet 1 g PO QID 04/10/25 04/10/25 Unknown History Allergies Allergy/AdvReac Type Severity Reaction Status Date / Time No Known Allergies Allergy Verified 04/10/25 11:15 [facility] Comments At time of signature, I have reviewed and agree with nursing past medical, surgical, social and family history unless otherwise noted. Please see nursing chart for further information. There is no relevant family history pertinent to the presenting complaint Exam Narrative: GENERAL: Well-appearing, well-nourished, and in no acute distress. HEAD: Normocephalic, atraumatic. EYES: EOMI. No redness or drainage. Conjunctivae normal. ENT: Mucous membranes pink and moist. NECK: Normal AROM. Supple. No lymphadenopathy. CHEST: No respiratory distress. Clear to auscultation. HEART: Regular rate and rhythm. No murmur appreciated. Normal peripheral pulses. ABDOMEN: Soft, nondistended, normal active bowel sounds.+suprapubic and epigastric tenderness without rebound or guarding. EXTREMITIES: Normal range of motion. No edema. SKIN: Warm, dry, no rash. Capillary refill normal. Normal skin turgor. NEURO: No focal deficits. Alert and oriented x3. Gait steady. PSYCH: Normal affect. No signs of depression or anxiety. Course Course Level of Care: Express Care Visit Vital Signs Vital signs: Vital Signs Temperature 99.4 F 04/10/25 11:21 Pulse Rate 113 H 04/10/25 11:21 Respiratory Rate 16 04/10/25 11:21 Blood Pressure 111/82 04/10/25 11:21 Pulse Oximetry 98 04/10/25 11:21 Oxygen Delivery Room Air 04/10/25 11:21 Temperature 99.4 F 04/10/25 11:21 Pulse Rate 113 H 04/10/25 11:21 Respiratory Rate 16 04/10/25 11:21 Blood Pressure 111/82 04/10/25 11:21 Pulse Oximetry 98 04/10/25 11:21 Oxygen Delivery Room Air 04/10/25 11:21 Reviewed Medical Decision Making MDM Narrative Medical decision making narrative: 25-year-old female patient presents today complaining of suprapubic discomfort and white/yellow vaginal discharge. Patient was seen in the ER in 04/03/2025 for she had a full workup regarding abdominal pain including labs, RUQ ultrasound, CTA chest/abd/pelvis. She was subsequently diagnosed with a UTI, discharged on Bactrim. The culture was negative. She finished the Bactrim yesterday and states symptoms have not improved. She complains of continued hematuria, incomplete bladder emptying as well. Earlier in the month, she was seen in the ER at [facility], diagnosed with gastritis due to epigastric pain. She has been taking pantoprazole, carafate, dicyclomine, and has made some dietary modifications. States the meds are not helping with this pain. She is not taking the suggested Pepcid. She is schedule for an endoscopy tomorrow. Recommend starting the Pepcid and following up with GI as scheduled for the gastritis issue. Will start patient on some Augmentin for continued urinary symptoms and will send for urine culture. Patient agrees with plan. Patient also self swabbed for BV and yeast. She declined pelvic exam today. Strict ED precautions given. Differential Diagnosis Differential Diagnosis: UTI, vaginal yeast infection, bacterial vaginosis, gastritis, gastric ulcer Vital Signs Vital Signs: Vital Signs Temperature 99.4 F 04/10/25 11:21 Pulse Rate 113 H 04/10/25 11:21 Respiratory Rate 16 04/10/25 11:21 Blood Pressure 111/82 04/10/25 11:21 Pulse Oximetry 98 04/10/25 11:21 Oxygen Delivery Room Air 04/10/25 11:21 Temperature 99.4 F 04/10/25 11:21 Pulse Rate 113 H 04/10/25 11:21 Respiratory Rate 16 04/10/25 11:21 Blood Pressure 111/82 04/10/25 11:21 Pulse Oximetry 98 04/10/25 11:21 Oxygen Delivery Room Air 04/10/25 11:21 Lab Data Labs: Lab Results 04/10/25 Range/Units 11:36 POC Urine Color Yellow POC Urine Clarity Cloudy POC Urine pH 6.0 POC Ur Specif [place] 1.015 POC Urine Protein Negative (Negative) POC Ur Glucose (UA) Negative (Negative) POC Urine Ketones 2+ (Negative) POC Urine Blood 2+ (Negative) POC Urine Nitrite Negative (Negative) POC Urine Bilirubin Negative (Negative) POC Urine Urobilinogen 0.2 POC U Leukocyte Esteras 1+ (Negative) Critical Care Time Critical Care Time Critical Care Time: No Discharge Plan Discharge Clinical Impression: Vaginal discharge Urinary tract infection Qualifiers: Urinary tract infection type: acute cystitis Hematuria presence: with hematuria Qualified Code(s): N30.01 - Acute cystitis with hematuria Gastritis Qualifiers: Gastritis type: unspecified gastritis Chronicity: acute Gastritis bleeding: presence of bleeding unspecified Qualified Code(s): K29.00 - Acute gastritis without bleeding Patient Disposition: Home Condition: Stable Instructions: Antibiotic Form, Urinary Tract Infection in Women (ED) Additional Instructions: Please start the Augmentin and Carafate and take as directed. Your urine will be sent off for urine culture and you will be notified of results. Your vaginal swabs will be sent to the hospital for to check for bacterial vaginosis and yeast, and you will be notified if you need any medications. Please follow-up with your PCP or supervisor cytogenetic laboratory for further evaluation. As discussed, please return to the ER if any symptoms worsen. Patient Language: [place] Prescriptions: New amoxicillin-pot clavulanate 875-125 mg tablet 1 tablet PO Q12H 7 Days Qty: 14 0RF No Action pantoprazole 40 mg tablet,delayed release (DR/EC) 40 mg PO Q12H sucralfate 1 gram tablet 1 g PO QID sulfamethoxazole-trimethoprim [Bactrim DS] 800-160 mg tablet 1 tablet PO Q12H 5 Days Qty: 10 0RF hydrocortisone [Proctosol HC] 2.5 % cream with perineal applicator 1 applic RECTAL DAILY PRN (Reason: hemorrhoids) Qty: 30 0RF Follow-up/Referrals: Romeo Rendon MD [Primary Care Provider, Family Practice] Stand Alone Forms: Work/School Release IP Time of Disposition: 12:14
== END 2025-04-10 12:18 | disposition home or self-care (01) ==
PROVIDERS: Emergency Provider Nurse Practitioner; PCP Emergency Medicine
DX: N89.8 Other specified noninflammatory disorders of vagina (principal); N30.01 Acute cystitis with hematuria; K29.00 Acute gastritis without bleeding
CPT/HCPCS: 81003; 87086; 87798; 99213; G0463

== ENCOUNTER 2025-04-24 11:23 | Outpatient (CLI) | payer OTHER, SELFPAY ==
--- NOTE | ~2025-04-24 | US_ITS ---
EXAM/PROCEDURE: US transvaginal HISTORY: Right ovarian cyst COMPARISON: No ne available. LMP: April 09, 2025 TECHNIQUE: Endovaginal pelvic ultrasound FINDINGS: The uterus measures 6.7 x 3.3 x 4.3 cm. Endometrial stripe: 7 mm Right ovary: 2.3 x 1.7 x 2.7 cm Left ovary: 3.0 x 2.0 x 2.6 cm. Both ovaries appear normal in echotexture and vascular flow. No free fluid seen. IMPRESSION: Pelvic ultrasound within normal limits. Reviewed, dictated and finalized at location [facility]
== END 2025-04-24 11:24 | disposition home or self-care (01) ==
LOC: MICIMG 11:24
PROVIDERS: PCP Emergency Medicine
DX: N83.201 Unspecified ovarian cyst, right side (principal)
CPT/HCPCS: 76830